=== PATIENT | male | born 1985 | race Caucasian/White ===

== ENCOUNTER 2017-02-21 15:00 | Emergency (ER) | payer MEDICAID, OTHER ==
[~2017-02-21] VITALS: Ht 177.8 cm; Wt 178.7 kg
--- NOTE | 2017-02-21 15:54 | Emergency Room Report ---
History of Present Illness General Chief Complaint: General Complaint Source: Patient Present Illness HPI 31YOM BIBEMS with concern for chicken piece boneless stuck in throat Unable to swallow secretions, keeps spitting up drool Denies vomiting Denies abd pain, chest pain Allergies: Uncoded Allergies: PCN (Allergy, Unknown, 02/21/17) Patient History Past Medical History: none Past Surgical History: none Pertinent Family History: none Social History: Denies: smoking, alcohol use, drug use Immunizations: UTD Reviewed Nursing Documentation: PMH: Agreed, PSxH: Agreed Nursing Documentation-PMH Past Medical History: No Stated History Review of Systems All Other Systems: negative except mentioned in HPI Physical Exam Vital Signs Date Time Temp Pulse Resp B/P (MAP) Pulse Ox O2 Delivery O2 Flow Rate FiO2 02/21/17 14:54 98.4 120 20 130/79 96 Room Air Sp02 EP Interpretation: reviewed General Appearance: normal inspection, well appearing, no apparent distress, alert, GCS 15, non-toxic, obese, other - Continually spitting up secretions Head: normocephalic, atraumatic Eyes: bilateral eye PERRL, bilateral eye EOMI ENT: normal ENT inspection, hearing grossly normal, normal pharynx, no angioedema, normal voice, other - No stridor heard or auscultated Neck: normal inspection, full range of motion, supple, no bony tend Respiratory: normal inspection, lungs clear, normal breath sounds, no respiratory distress, no retraction, no wheezing Cardiovascular #1: regular rate, rhythm, no edema Gastrointestinal: normal inspection, normal bowel sounds, non tender, soft, no guarding, no hernia Genitourinary: no CVA tenderness Musculoskeletal: normal inspection, back normal, normal range of motion, Prakash' s Sign negative Neurologic: normal inspection, alert, oriented x3, responsive, newspaper carrier III-XII nml as tested, motor strength/tone normal, speech normal Psychiatric: normal inspection, judgement/insight normal, mood/affect normal Medical Decision Making Diagnostic Impression: Primary Impression: Foreign body sensation in throat ER Course VS initially with tachycardia. Improved after coughed up FB Unable to fit in CT scanner d/t obesity Soft tissue neck ED review 2 views Airway intact No FB seen in airway No soft tissue swelling before octreotide given, patient coughed up 2x large pieces of chicken Coughed up after soda Feels much better Likely FB was in esophagus No airway involvement Observed in ED with continuous improvement DC home Last Vital Signs Date Time Temp Pulse Resp B/P (MAP) Pulse Ox O2 Delivery O2 Flow Rate FiO2 02/21/17 14:54 98.4 120 20 130/79 96 Room Air Status: improved Disposition: HOME, SELF-CARE KATE SPAULDING M.D. Feb 21, 2017 15:54
[2017-02-21] MEDS ORDERED: SandoSTATIN 50mcg Inj IVP ONE (16:00)
--- NOTE | 2017-02-21 16:18 | Diagnostic Imaging Report ---
Indication: PAIN Technique: 2 views of the neck with soft tissue technique Comparison: None Findings: Body habitus somewhat limits evaluation. Normal epiglottis. No significant hypopharyngeal distention or glottic narrowing. No definite radiopaque foreign body demonstrated. Noted on the AP view there is what may be a surgical clip in the region of the left ear. Impression: No definite radiopaque foreign body or other significant abnormality demonstrated
[2017-02-21 16:30] VITALS: BP 135/82
[2017-02-21] MEDS ORDERED: LORazepam Inj 2mg/ml 1ml IM ONE (17:00)
[2017-02-21] MEDS ORDERED: LORazepam Inj 2mg/ml 1ml IV ONE (17:30)
[2017-02-21] MEDS ORDERED: Atropine Inj 1mg/10ml Syr ONE (17:42)
[2017-02-21 18:24] VITALS: BP 127/71
== END 2017-02-21 18:25 | disposition home or self-care (01) ==
LOC: EDBD 15:00 → EMR 15:32
DX: R09.89 Other specified symptoms and signs involving the circulatory and respiratory systems (principal); Z88.0 Allergy status to penicillin
CPT/HCPCS: 70360; 96372; 96374; 96375; 99284